=== PATIENT | male | born 1955 | race Caucasian/White ===

== ENCOUNTER 2022-11-20 10:50 | Emergency (ER) | payer OTHER ==
[~2022-11-20] VITALS: Ht 167.6 cm; Wt 74.0 kg
[2022-11-20 10:57] VITALS: BP 130/80; PULSE 82; RESP 18; TEMP 98.6; O2SAT 98
[2022-11-20] MEDS ORDERED: ACETAMINOPHEN 325MG TABLET PO ONE (11:30)
[2022-11-20] MEDS ORDERED: TOPUD PO (12:35)
== END 2022-11-20 14:47 | disposition home or self-care (01) ==
LOC: ER 10:50
DX: M25.562 Pain in left knee (principal)
CPT/HCPCS: 73560; 99283